=== PATIENT | male | born 1980 | race Caucasian/White ===

== ENCOUNTER 2017-11-29 16:17 | Emergency (ER) | payer OTHER ==
[2017-11-29 16:27] VITALS: BP 126/86
[2017-11-29] MEDS ORDERED: TDAP ADULT 0.5 ML INJ (BOOSTRIX) IM ONE (16:31)
--- NOTE | 2017-11-29 16:44 | EDPHY ---
H & P Stated Complaint: left arm laceration by selena at 330pm today while at work Time Seen by Provider: 11/29/17 16:27 HPI/ROS: Chief Complaint: Arm laceration HPI: 37-year-old male was working on a job site when he caught his left arm on a piece of sharp Re bar, sustaining a laceration to his left forearm. He denies being impaled by the or falling. He does not know last tetanus shot. No other injuries. ROS: 10 point Review of Systems is negative except as noted in the HPI. Social History: No smoking Family History: non-contributory Physical Exam: General: Awake, alert, no acute distress Left arm. Patient has a 3 cm laceration on his volar left forearm through the dura, does not cross the fascial plane, there is no subcutaneous involvement. There is no active bleeding. There is no muscle belly or tendon involvement. There is no vascular involvement. Sensations intact distally. Skin: No rash - Personal History Current Tetanus Diphtheria and Acellular Pertussis (TDAP): Unsure - Medical/Surgical History Other PMH: shoulder surg, appy, hand surg - Social History Smoking Status: Never smoked Constitutional: Initial Vital Signs Temperature (C) 36.6 C 11/29/17 16:23 Heart Rate 98 11/29/17 16:23 Respiratory Rate 18 11/29/17 16:23 Blood Pressure 126/86 H 11/29/17 16:23 O2 Sat (%) 95 11/29/17 16:23 Allergies/Adverse Reactions: No Known Allergies Allergy (Unverified 11/29/17 16:23) Home Medications: Medication Instructions Recorded NK [No Known Home Meds] 11/29/17 Medical Decision Making Procedures: Procedure: Laceration repair. Verbal consent was obtained from the patient. The 3 cm laceration on the left forearm was anesthetized in the usual fashion. The wound was irrigated, draped and explored to its base with a gloved finger. There were no deep structures involved. No tendon injury was identified. The wound was repaired with 5 0 Ethilon running suture. The wound repair was uncomplicated. The procedure was performed by myself. - Data Points Medications Given: Discontinued Medications Diphtheria/Tetanus/Acell Pertussis (Boostrix) 0.5 ml IM .ONCE ONE Stop: 11/29/17 16:32 Last Admin: 11/29/17 16:37 Dose: 0.5 ml Departure - Departure Disposition: Home, Routine, Self-Care Clinical Impression: Laceration Condition: Good Instructions: Laceration (ED), Care For Your Stitches (ED), Diphtheria/ Acellular Pertussis/Tetanus Booster Vaccine (By injection) Additional Instructions: Sutures need to be removed in 7-10 days. You are welcome to return to the emergency department to have these removed or you can follow up with your doctor or workman's Comp. Return to the emergency department for increasing redness, discharge from the wound, red streaking up your arm, fevers, or any other concerns. Referrals: Work Comp Referral [facility] [Outside] - As per Instructions
== END 2017-11-29 17:07 | disposition home or self-care (01) ==
LOC: CED 16:17
PROC: 0HQCXZZ Repair Left Upper Arm Skin, External Approach (ICD-10-PCS; principal; 2017-11-29)
DX: S51.812A Laceration without foreign body of left forearm, initial encounter (principal); Z23 Encounter for immunization; W26.8XXA Contact with other sharp object(s), not elsewhere classified, initial encounter; Y92.69 Other specified industrial and construction area as the place of occurrence of the external cause; Y99.8 Other external cause status; Y93.89 Activity, other specified